=== PATIENT | male | born 1960 | race Caucasian/White ===

== ENCOUNTER 2020-05-28 10:27 | Outpatient (CLI) | payer BC, SELFPAY ==
--- NOTE | ~2020-05-28 | CT_ITS ---
EXAMINATION: CT lung screening EXAM DATE: 05/28/2020 10:48 INDICATION: History of tobacco abuse. TECHNIQUE: Spiral low dose CT of the chest without contrast. Axial, coronal and sagittal images were reviewed. The dose-length product (DLP) for this examination was 417.46 mGy-cm. The exposure was t ailored according to patient size (auto mA exposure control), and iterative reconstruction (ASIR) was used as additional dose reduction technique. There is no prior study for comparison. FINDINGS: Left lower lobe calcified granuloma. Small region of faint right lower lobe tree-in-bud op acities consistent with postinfectious residua. The lungs are otherwise clear. Tracheobronchial jc e is patent. Prevascular lymph node measuring 9 x 16 mm, with coarse calcifications likely postinfe ctious. This is the largest lymph node identified. There are no pleural or pericardial effusions. There is no pneumothorax. Heart normal in size. There is mild coronary arterial calcification, ar terial sclerosis. Small calcified cholelithiasis. There is 3 mm right superior calyceal stone. 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 IMPRESSION: Lung-RADS category 2, benign appearance or behavior (<1% chance of malignancy); recommend continued LDCT screening in 1 year. Reviewed, dictated and finalized at location A.
== END 2020-05-28 10:28 | disposition home or self-care (01) ==
PROVIDERS: PCP Physician Assistant; Visit Provider Physician Assistant
DX: Z87.891 Personal history of nicotine dependence (principal)
CPT/HCPCS: 71271